=== PATIENT | male | born 1980 | race Caucasian/White ===

== ENCOUNTER 2024-06-15 19:57 | Emergency (ER) | payer SELFPAY ==
[~2024-06-15] VITALS: Ht 172.7 cm; Wt 77.0 kg
[2024-06-15 20:01] VITALS: O2SAT 98
[2024-06-15 21:18] LABS: HEMATOCRIT. 45.8 % (42.0-52.0); HEMOGLOBIN. 15.2 g/dL (14.0-18.0); MEAN CORPUSCULAR HEMOGLOBIN 29.7 pg (28.0-32.0); MEAN CORPUSCULAR HGB CONC 33.3 g/dL (31.0-37.0); MEAN CORPUSCULAR VOLUME 89.4 fL (80.0-94.0); MEAN PLATELET VOLUME 6.4 fl (7.4-10.4); PLATELET 273 x1000/uL (130-400); RED BLOOD CELL COUNT 5.13 mill/uL (4.7-6.1); RED CELL DISTRIBUTION WIDTH 13.2 % (11.6-14.6); WHITE BLOOD COUNT 10.4 x1000/uL (4.5-11.0)
[2024-06-15 21:21] LABS: DIFFERENTIAL COMMENT 1
[2024-06-15 21:27] LABS: CHLORIDE 100 mEq/L (98-107); POTASSIUM 4.1 mEq/L (3.5-5.1); SODIUM 136 mEq/L (136-145)
[2024-06-15 21:28] LABS: CALCIUM 10.2 mg/dL (8.7-10.4); CARBON DIOXIDE 29 mEq/L (21-32)
[2024-06-15] MEDS: ACETAMINOPHEN 325MG TABLET PO STA (21:28)
[2024-06-15] MEDS: SODIUM CHLORIDE 0.9% 1,000 ML IV ONE (21:28)
[2024-06-15] MEDS: FAMOTIDINE 20MG TABLET PO ONE (21:28)
[2024-06-15 21:33] LABS: ETHANOL BLOOD < 10 mg/dL (<10); GLUCOSE 130 mg/dL (70-105); UREA NITROGEN BLOOD 11 mg/dL (9-23)
[2024-06-15 21:47] LABS: PLATELET ESTIMATE NORMAL
[2024-06-15 21:57] LABS: TROPONIN I HIGH SENSITIVITY < 4 ng/L (3.0-53)
[2024-06-15] MEDS ORDERED: ONDA4TAB50 MT (22:26)
[2024-06-15] MEDS ORDERED: BISM-77 MT (22:26)
[2024-06-15] MEDS ORDERED: ACET-2708 MT (22:26)
[2024-06-15 23:02] VITALS: BP 106/61; PULSE 68; RESP 19; TEMP 37.1; O2SAT 100
== END 2024-06-15 23:03 | disposition home or self-care (01) ==
LOC: EDBD 19:57 → ER 19:57
DX: K52.9 Noninfective gastroenteritis and colitis, unspecified (principal); R55 Syncope and collapse
CPT/HCPCS: 80048; 80320; 82962; 83880; 83690; 85025; 84484; 36415; 71045; 70450; 96360; 99284; J7030; G0480